=== PATIENT | male | born 1975 | race Caucasian/White ===

== ENCOUNTER 2017-08-26 02:22 | Emergency (ER) | payer OTHER ==
[2017-08-26] MEDS ORDERED: TDAP ADULT 0.5 ML INJ (BOOSTRIX) IM ONE (02:30)
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
[2017-08-26] MEDS ORDERED: LORazepam 2 MG/ML INJ ONE (03:58)
[2017-08-26] MEDS ORDERED: SKIN ADHESIVE (DERMABOND) 1 EACH TP ONE (03:59)
[2017-08-26 05:40] VITALS: BP 133/76
== END 2017-08-26 05:30 | disposition home or self-care (01) ==
LOC: EDUNIT#
DX: S51.811A Laceration without foreign body of right forearm, initial encounter (principal); S41.111A Laceration without foreign body of right upper arm, initial encounter; S01.02XA Laceration with foreign body of scalp, initial encounter; F10.129 Alcohol abuse with intoxication, unspecified; Z23 Encounter for immunization; W10.8XXA Fall (on) (from) other stairs and steps, initial encounter; Y92.89 Other specified places as the place of occurrence of the external cause; Y99.8 Other external cause status; Y93.01 Activity, walking, marching and hiking
CPT/HCPCS: J2060